=== PATIENT | female | born 1960 | race Caucasian/White ===

== ENCOUNTER 2016-05-02 11:38 | Emergency (ER) | payer OTHER ==
[~2016-05-02] VITALS: Ht 152.4 cm; Wt 70.3 kg
[2016-05-02 12:14] VITALS: BP 110/57
--- NOTE | 2016-05-02 14:31 | NUR ---
Patient to bed 05.
--- NOTE | 2016-05-02 14:33 | NUR ---
5/F BIB DAUGHTER C/O NUMB BOTH LEGS, WEAKNESS ,HEADACHE & LOWER BACK PAIN S/P FALL WHEN GOT OUT OF BED THIS MORNING. PT DENIES N/V/D; SKIN IS PINK/WARM/DRY; AAOX4 WITH EVEN AND STEADY GAIT; LUNGS CLEAR BL; HR EVEN AND REGULAR; PT DENIES ANY FEVER, CP, SOB, OR COUGH AT THIS TIME; PATIENT STATES PAIN OF 8/10 AT THIS TIME; PATIENT POSITIONED FOR COMFORT; HOB ELEVATED; BEDRAILS UP X2; BED DOWN. ER MD MADE AWARE OF PT STATUS.
--- NOTE | 2016-05-02 14:33 | NUR ---
Note undone in EDM - 05/02/16 at 1733 by [email or web address] 55/F C/ONUMB BOTH LEGS, WEAKNESS ,HEADACHE & LOWER BACK PAIN S/P FALL WHEN GOT OUT OF BED THIS MORNING.PT DENIES N/V/D; SKIN IS PINK/WARM/DRY; AAOX4 WITH EVEN AND STEADY GAIT; LUNGS CLEAR BL; HR EVEN AND REGULAR; PT DENIES ANY FEVER, CP, SOB, OR COUGH AT THIS TIME; PATIENT STATES PAIN OF 8/10 AT THIS TIME; PATIENT POSITIONED FOR COMFORT; HOB ELEVATED; BEDRAILS UP X2; BED DOWN. ER MADE AWARE OF PT STATUS.
--- NOTE | 2016-05-02 15:16 | NUR ---
Dr. Spears evaluating patient at bedside.
[2016-05-02] MEDS ORDERED: NACL 0.9% 1,000 ML IV ONE ×2 (15:30→17:35)
[2016-05-02] MEDS ORDERED: METOCLOPRAMIDE 10 MG/2 ML INJ VIAL IVP ONE (15:30)
--- NOTE | 2016-05-02 15:45 | NUR ---
PT TAKEN TO US VIA W/C ACCOMPANIED BY ADVERTISER
--- NOTE | 2016-05-02 15:58 | NUR ---
PT RETURNED FROM US
[2016-05-02] MEDS ORDERED: ENOXAPARIN 80 MG/0.8 ML SYR SUBQ ONE (16:20)
[2016-05-02] MEDS ORDERED: CLOPIDOGREL 75 MG TAB PO ONE (16:20)
--- NOTE | 2016-05-02 16:53 | NUR ---
Patient appears to be resting comfortably in bed. Respirations even and unlabored.WILL CONTINUE TO MONITOR
--- NOTE | 2016-05-02 17:46 | NUR ---
Jorge garcia in [facility] - 05/02/16 at 1751 by [email or web address] Patient Tranfers to outside Facility Physician:DR DON Location:[facility]
--- NOTE | 2016-05-02 17:47 | NUR ---
GAVE REPORT TO SECURITY INTERNCATHI ZUÑIGA ;[facility]
[2016-05-02 18:18] VITALS: BP 96/65
--- NOTE | 2016-05-02 18:18 | NUR ---
Patient to be transferred to [facility]. Is being transferred due to HIGHER LEVEL OF CARE. Receiving facility has accepting physician and available space. ER physician has signed transfer form. Patient or responsible democrat has agreed to transfer and signed form. Patient belongings inventoried and will be sent with patient. Copy of nursing notes, lab reports, EKG, Physicians Orders and X-rays to be sent with patient. Report called to CATHI ELKINS at receiving facility. PT BEING TRANSFERRED VIA GURNEY ACCOMPANIED BY JASON AT THIS TIME.
== END 2016-05-02 18:18 | disposition short-term general hospital (02) ==
LOC: MED 11:38
DX: I21.4 Non-ST elevation (NSTEMI) myocardial infarction (principal); E11.9 Type 2 diabetes mellitus without complications; F17.210 Nicotine dependence, cigarettes, uncomplicated
CPT/HCPCS: 36415; 70450; 71010; 80053; 81002; 81025; 82948; 84484; 85025; 87040; 93005; 96361; 96372; 96374; 99285; J1650; J2765; J7030